=== PATIENT | female | born 1985 | race Two or more races ===

== ENCOUNTER 2019-06-10 22:35 | Inpatient (IN) | payer BC ==
[2019-06-10] MEDS ORDERED: Lidocaine 1% 50 ML MDV INJECT ONE (23:01)
[2019-06-10] MEDS ORDERED: Sodium Chloride 0.9% 10 ML Syringe FLUSH PRN (23:01)
[2019-06-10] MEDS ORDERED: Nalbuphine 10 MG/ML Syringe IVPUSH PRN (23:01)
[2019-06-10] MEDS: Lactated Ringers 1,000 ML IV SCH ×2 (23:11→23:55)
[2019-06-10] MEDS ORDERED: fentaNYL 100 MCG/2 ML SDV EPIDUR PRN (23:26)
[2019-06-10] MEDS ORDERED: diphenhydrAMINE 50 MG/ML SDV IVPUSH PRN (23:26)
[2019-06-10] MEDS ORDERED: fentaNYL/Bupivacaine/NS 2 MCG-0.125% 250 ML EPIDUR PRN (23:26)
[2019-06-10] MEDS ORDERED: ePHEDrine 50 MG/ML SDV IVPUSH PRN (23:26)
--- NOTE | 2019-06-10 23:51 | PCM.PREANE ---
Preanesthetic Assessment - Procedure Proposed Procedure: masha - Anesthesia/Transfusion/Family Hx Anesthesia History: Prior Anesthesia Without Reaction Family History of Anesthesia Reaction: No Transfusion History: No Prior Transfusion(s) - Review of Systems General: No Symptoms Pulmonary: No Symptoms Cardiovascular: No Symptoms Gastrointestinal: No Symptoms Neurological: No Symptoms Other: Reports: None - Physical Assessment Vital Signs: 113/62 103 100% Height: 5 ft 2 in Weight: 76.204 kg ASA Class: 2 Mental Status: Alert & Oriented x3 Airway Class: Mallampati = 1 Dentition: Reports: Normal Dentition Thyro-Mental Finger Breadths: 3 Mouth Opening Finger Breadths: 3 ROM/Head Extension: Full Lungs: Clear to Auscultation, Normal Respiratory Effort Cardiovascular: Regular Rate, Regular Rhythm - Lab Values: Laboratory Last Values WBC 12.35 K/mm3 (3.98-10.04) H 06/10/19 23:17 RBC 4.17 M/mm3 (3.98-5.22) 06/10/19 23:17 Hgb 13.7 gm/dl (11.2-15.7) 06/10/19 23:17 Hct 39.2 % (34.1-44.9) 06/10/19 23:17 MCV 94.0 fl (79.4-94.8) 06/10/19 23:17 MCH 32.9 pg (25.6-32.2) H 06/10/19 23:17 MCHC 34.9 g/dl (32.2-35.5) 06/10/19 23:17 RDW Std Deviation 44.9 fL (36.4-46.3) 06/10/19 23:17 Plt Count 217 K/mm3 (182-369) 06/10/19 23:17 MPV 10.2 fl (9.4-12.3) 06/10/19 23:17 Neut % (Auto) 74.4 % (34.0-71.1) H 06/10/19 23:17 Lymph % (Auto) 16.1 % (19.3-51.7) L 06/10/19 23:17 [place] % (Auto) 8.6 % (4.7-12.5) 06/10/19 23:17 Eos % (Auto) 0.6 (0.7-5.8) L 06/10/19 23:17 Baso % (Auto) 0.1 % (0.1-1.2) 06/10/19 23:17 Neut # (Auto) 9.19 K/mm3 (1.56-6.13) H 06/10/19 23:17 Lymph # (Auto) 1.99 K/mm3 (1.18-3.74) 06/10/19 23:17 [place] # (Auto) 1.06 K/mm3 (0.24-0.36) H 06/10/19 23:17 Eos # (Auto) 0.07 K/mm3 (0.04-0.36) 06/10/19 23:17 Baso # (Auto) 0.01 K/mm3 (0.01-0.08) 06/10/19 23:17 - Allergies Allergies/Adverse Reactions: Allergies Allergy/AdvReac Type Severity Reaction Status Date / Time No Known Allergies Allergy Verified 06/10/19 23:33 - Blood Blood Available: No - Acknowledgements Anesthesia Type Planned: Epidural Pt an Appropriate Candidate for the Planned Anesthesia: Yes Alternatives and Risks of Anesthesia Discussed w Pt/Guardian: Yes Pt/Guardian Understands and Agrees with Anesthesia Plan: Yes PreAnesthesia Questionnaire Cardiovascular History: Reports: None Respiratory History: Reports: None Gastrointestinal History: Reports: None : 3 (40 weeks) Para: 2 - Past Surgical History HEENT Surgical History: Reports: Oral Surgery - History Comment History Comment: vits for meds - SUBSTANCE USE Smoking Status *Q: Never Smoker Tobacco Use Within Last Twelve Months: No Second Hand Smoke Exposure: No Days Per Week of Alcohol Use: 0 Recreational Drug Use History: No - CURRENT (IN HOUSE) MEDS Current Meds: Current Medications Diphenhydramine HCl (Benadryl) 25 mg IVPUSH Q6H PRN PRN Reason: pruritis Ephedrine Sulfate (Ephedrine Sulfate) 5 mg IVPUSH ASDIRECTED PRN PRN Reason: Hypotension Fentanyl (Sublimaze) 100 mcg EPIDUR Q3H PRN PRN Reason: Pain Fentanyl/Bupivacaine HCl (Fentanyl/Bupivacaine/Ns 2 Mcg-0.125% 250 Ml) ml EPIDUR CONTINUOUS PRN PRN Reason: Pain Lactated Ringer's (Ringers, Lactated) 1,000 mls @ 100 mls/hr IV ASDIRECTED ALICE Last Admin: 06/10/19 23:11 Dose: 999 mls/hr Oxytocin/Lactated Ringer's (Pitocin In Lr 10 Units/1,000 Ml) 10 unit in 1,000 mls @ 500 mls/hr IV .CONTINUOUS ALICE Nalbuphine HCl (Nubain) 10 mg IVPUSH Q2H PRN PRN Reason: Pain Sodium Chloride (Saline Flush) 10 ml FLUSH ASDIRECTED PRN PRN Reason: Keep Vein Open Discontinued Medications Lidocaine HCl (Xylocaine 1%) 20 ml INJECT ONETIME ONE Stop: 06/10/19 23:02
[2019-06-11] MEDS ORDERED: Bupivacaine 0.25% 10 ML SDV ONE
[2019-06-11] MEDS: Lactated Ringers 1,000 ML IV SCH (00:48)
--- NOTE | 2019-06-11 00:56 | PCM.LDHP ---
L&D History of Present Illness - General Date of Service: 06/10/19 Admit Problem/Dx: Patient Status Order with Admit Dx/Problem 06/10/19 23:01 Patient Status [ADT] Routine Admission Diagnosis/Problem Admission Diagnosis/Problem Active labor Source of Information: Patient History Limitations: Reports: No Limitations - History of Present Illness Introduction:: 34 year old at 40w3d here with labor. Questions rupture of membranes at 0900 and regular contractions started around 9pm. Arrived 8cm dilated. records reviewed and on chart. Care with myself without complications. - Related Data Allergies/Adverse Reactions: Allergies Allergy/AdvReac Type Severity Reaction Status Date / Time No Known Allergies Allergy Verified 06/10/19 23:33 Past Medical History Cardiovascular History: Reports: None Respiratory History: Reports: None Gastrointestinal History: Reports: None - Past Surgical History HEENT Surgical History: Reports: Oral Surgery - History Comment History Comment: vits for meds Social & Family History - Tobacco Use Smoking Status *Q: Never Smoker Second Hand Smoke Exposure: No - Alcohol Use Days Per Week of Alcohol Use: 0 - Recreational Drug Use Recreational Drug Use: No H&P Review of Systems - Review of Systems: Review Of Systems: See Below General: Reports: No Symptoms HEENT: Reports: No Symptoms Pulmonary: Reports: No Symptoms Cardiovascular: Reports: No Symptoms Gastrointestinal: Reports: No Symptoms Genitourinary: Reports: No Symptoms Musculoskeletal: Reports: No Symptoms Skin: Reports: No Symptoms Psychiatric: Reports: No Symptoms Neurological: Reports: No Symptoms Hematologic/Lymphatic: Reports: No Symptoms Immunologic: Reports: No Symptoms L&D Exam - Exam Exam: See Below - Vital Signs Vital Signs: Last Vital Signs Temp 37.1 C 06/10/19 23:01 Pulse 93 06/10/19 23:01 Resp 18 06/10/19 23:01 BP 121/78 06/10/19 23:01 Pulse Ox 100 06/10/19 23:01 Weight: 76.204 kg - OB Specific Fundal Height In cm: 40 Contraction Duration (sec): 60 Contraction Frequency (min): 4 Contraction Intensity: Strong Movement: Active Heart Tones: Present - Allen Score Allen Score Cervix Position: Anterior Allen Score Effacement: >80% Allen Score Dilation: > 5 cm Allen Score 's Station: -1 ,0 - Exam General: Alert, Oriented HEENT: PERRLA, Conjunctiva Clear, EACs Clear, EOMI, Hearing Intact, Mucosa Moist & [place], Nares Patent, Normal Nasal Septum, Posterior Pharynx Clear, TMs Clear Neck: Supple, Trachea Midline Lungs: Clear to Auscultation, Normal Respiratory Effort Cardiovascular: Regular Rate, Regular Rhythm GI/Abdominal Exam: Normal Bowel Sounds, Soft, Non-Tender, No Organomegaly Rectal Exam: Normal Exam Genitourinary: Normal external exam, Normal bimanual exam, Normal speculum exam Back Exam: Normal Inspection, Full Range of Motion Extremities: Normal Inspection, Normal Range of Motion, Non-Tender, No Pedal Edema, Normal Capillary Refill Skin: Warm, Dry, Intact Neurological: Cranial Nerves Intact, Reflexes Equal Bilateral Psychiatric: Alert, Normal Affect, Normal Mood - Patient Data Lab Results Last 24 hrs: Laboratory Results - last 24 hr 06/10/19 Range/Units 23:17 WBC 12.35 H (3.98-10.04) K/mm3 RBC 4.17 (3.98-5.22) M/mm3 Hgb 13.7 (11.2-15.7) gm/dl Hct 39.2 (34.1-44.9) % MCV 94.0 (79.4-94.8) fl MCH 32.9 H (25.6-32.2) pg MCHC 34.9 (32.2-35.5) g/dl RDW Std Deviation 44.9 (36.4-46.3) fL Plt Count 217 (182-369) K/mm3 MPV 10.2 (9.4-12.3) fl Neut % (Auto) 74.4 H (34.0-71.1) % Lymph % (Auto) 16.1 L (19.3-51.7) % [place] % (Auto) 8.6 (4.7-12.5) % Eos % (Auto) 0.6 L (0.7-5.8) Baso % (Auto) 0.1 (0.1-1.2) % Neut # (Auto) 9.19 H (1.56-6.13) K/mm3 Lymph # (Auto) 1.99 (1.18-3.74) K/mm3 [place] # (Auto) 1.06 H (0.24-0.36) K/mm3 Eos # (Auto) 0.07 (0.04-0.36) K/mm3 Baso # (Auto) 0.01 (0.01-0.08) K/mm3 Result Diagrams: 06/10/19 23:17 Problem List Initiated/Reviewed/Updated: Yes Orders Last 24hrs: Active Orders 24 hr Category Date Time Status Patient Status [ADT] Routine ADT 06/10/19 23:01 Active Activity as Tolerated [RC] PFP Care 06/10/19 23:01 Active Communication Order [RC] ASDIRECTED Care 06/10/19 23:01 Active Heart Tones [RC] ASDIRECTED Care 06/10/19 23:02 Active Non Stress Test [RC] PER UNIT ROUTINE Care 06/10/19 23:01 Active Notify Provider [RC] ASDIRECTED Care 06/10/19 23:26 Active Notify Provider [RC] PFP Care 06/10/19 23:01 Active Notify Provider [RC] PRN Care 06/10/19 23:01 Active Peripheral IV Care [RC] Q2HR Care 06/10/19 23:02 Active Pump Management, Intrathecal [RC] ASDIRECTED Care 06/10/19 23:03 Active Urinary Catheter Assessment [RC] ASDIRECTED Care 06/10/19 23:01 Active Vital Signs [RC] PER UNIT ROUTINE Care 06/10/19 23:01 Active Regular Diet [DIET] Diet 06/10/19 Breakfast Active BLOOD BANK HOLD SPECIMEN [BBK] Stat Lab 06/10/19 23:01 Ordered RAPID PLASMA REAGIN,RPR [CHEM] Stat Lab 06/10/19 23:17 Received Bupivicaine/fentaNYL/NS [fentaNYL/Bupivacaine/NS 2 MCG- Med 06/10/19 23:26 Active 0.125% 250 ML] 250 ml EPIDUR CONTINUOUS PRN Lactated Ringers [Ringers, Lactated] 1,000 ml Med 06/10/19 23:15 Active IV ASDIRECTED Nalbuphine [Nubain] Med 06/10/19 23:01 Active 10 mg IVPUSH Q2H PRN Oxytocin/Lactated Ringers [Pitocin in LR 10 Units/1,000 Med 06/10/19 23:15 Active ML] 10 unit in 1,000 ml IV .CONTINUOUS Sodium Chloride 0.9% [Saline Flush] Med 06/10/19 23:01 Active 10 ml FLUSH ASDIRECTED PRN diphenhydrAMINE [Benadryl] Med 06/10/19 23:26 Active 25 mg IVPUSH Q6H PRN ePHEDrine [ePHEDrine sulfate] Med 06/10/19 23:26 Active 5 mg IVPUSH ASDIRECTED PRN fentaNYL [Sublimaze] Med 06/10/19 23:26 Active 100 mcg EPIDUR Q3H PRN Electronic Heart Tones Ext w TOCO [WOMSER] Oth 06/10/19 23:01 Ordered Routine Electronic Heart Tones Internal [WOMSER] Per Unit Oth 06/10/19 23:01 Ordered Routine Peripheral IV Insertion Adult [OM.PC] Routine Oth 06/10/19 23:01 Ordered Resuscitation Status Routine Resus Stat 06/10/19 23:01 Ordered Medication Orders Diphenhydramine HCl (Benadryl) 25 mg IVPUSH Q6H PRN PRN Reason: pruritis Ephedrine Sulfate (Ephedrine Sulfate) 5 mg IVPUSH ASDIRECTED PRN PRN Reason: Hypotension Fentanyl (Sublimaze) 100 mcg EPIDUR Q3H PRN PRN Reason: Pain Last Admin: 06/11/19 00:08 Dose: 100 mcg Fentanyl/Bupivacaine HCl (Fentanyl/Bupivacaine/Ns 2 Mcg-0.125% 250 Ml) 250 ml EPIDUR CONTINUOUS PRN PRN Reason: Pain Last Admin: 06/11/19 00:08 Dose: 250 ml Lactated Ringer's (Ringers, Lactated) 1,000 mls @ 100 mls/hr IV ASDIRECTED ALICE Last Admin: 06/11/19 00:48 Dose: 999 mls/hr Infusion: 06/11/19 00:48 Dose: 999 mls/hr Admin: 06/10/19 23:55 Dose: 999 mls/hr Infusion: 06/10/19 23:55 Dose: 999 mls/hr Admin: 06/10/19 23:11 Dose: 999 mls/hr Oxytocin/Lactated Ringer's (Pitocin In Lr 10 Units/1,000 Ml) 10 unit in 1,000 mls @ 500 mls/hr IV .CONTINUOUS ALICE Nalbuphine HCl (Nubain) 10 mg IVPUSH Q2H PRN PRN Reason: Pain Sodium Chloride (Saline Flush) 10 ml FLUSH ASDIRECTED PRN PRN Reason: Keep Vein Open Assessment/Plan Comment:: Term labor. GBS negative. Reactive monitoring. Anticipate .
[2019-06-11] MEDS: Oxytocin/Lactated Ringers 10 UNIT/1,000 ML BAG IV SCH ×2 (02:21→03:11)
[2019-06-11] MEDS ORDERED: Misoprostol 200 MCG Tab ONE (02:31)
--- NOTE | 2019-06-11 02:36 | PCM.SN ---
- Free Text/Narrative Note: Stage I - Patient presented in active labor. AROM clear fluid. Epidural. Progressed to complete with overall reassuring FHT. Stage II - of viable male, weight 8#1 oz, 8/9 APGARS 0221. Head delivered in controlled manner over intact perineum. Body and shoulders atraumatically. To maternal abdomen. Cord clamped and cut. Stage III - of intact placenta. 3vc. no laceration. EBL 500. Pitocin and cytotec given.
[2019-06-11] MEDS ORDERED: Ibuprofen 600 MG Tab PO PRN (03:58)
[2019-06-11] MEDS ORDERED: Misoprostol 200 MCG Tab PO PRN (03:58)
[2019-06-11] MEDS ORDERED: Benzocaine/Menthol 20%-0.5% Spray 56 GM Canister TOP PRN (03:58)
[2019-06-11] MEDS ORDERED: Acetaminophen 325 MG Tab PO PRN (03:58)
[2019-06-11] MEDS ORDERED: Witch Hazel Medicated Pads 40/Jar TOP PRN (03:58)
[2019-06-11] MEDS ORDERED: fentaNYL/Bupivacaine/NS 2 MCG-0.125% 250 ML EPIDUR ONE (04:27)
[2019-06-11] MEDS ORDERED: fentaNYL 100 MCG/2 ML SDV IVPUSH ONE (04:27)
--- NOTE | 2019-06-11 07:35 | PCM48HPAN ---
Post Anesthesia Note - EVALUATION WITHIN 48HRS OF ANESTHETIC Vital Signs in Normal Range: Yes Patient Participated in Evaluation: Yes Respiratory Function Stable: Yes Airway Patent: Yes Cardiovascular Function Stable: Yes Hydration Status Stable: Yes Pain Control Satisfactory: Yes Nausea and Vomiting Control Satisfactory: Yes Mental Status Recovered: Yes Vital Signs: Last Vital Signs Temp 37.1 C 06/10/19 23:01 Pulse 72 06/11/19 04:30 Resp 18 06/10/19 23:01 BP 119/60 06/11/19 04:30 Pulse Ox 100 06/10/19 23:31 - COMMENTS/OBSERVATIONS Free Text/Narrative:: no anesthesia complications noted
--- NOTE | 2019-06-12 06:44 | PCM.DCSUM1 ---
Discharge Summary - Hospital Course Diagnosis: Stroke: No - Discharge Data Discharge Date: 06/12/19 Discharge Disposition: Home, Self-Care 01 Condition: Good - Referral to Home Health Primary Care Physician: Lilia Gutierrez MD - Patient Instructions Diet: Usual Diet as Tolerated Driving: May Drive Today Showering/Bathing: September Shower Notify Provider of: Fever, Increased Pain, Swelling and Redness, Drainage, Nausea and/or Vomiting - Discharge Plan *PRESCRIPTION DRUG MONITORING PROGRAM REVIEWED*: No *COPY OF PRESCRIPTION DRUG MONITORING REPORT IN PATIENT VERA: No Home Medications: Home Meds No122/Iron/Folic Acid [ Multi Tablet] 1 each PO DAILY 06/11/19 [History] Referrals: iLlia Gutierrez MD [Primary Care Provider] - (2 week) - Discharge Summary/Plan Comment DC Time >30 min.: No - General Info Date of Service: 06/12/19 Functional Status: Reports: Pain Controlled - Review of Systems General: Reports: No Symptoms HEENT: Reports: No Symptoms Pulmonary: Reports: No Symptoms Cardiovascular: Reports: No Symptoms Gastrointestinal: Reports: No Symptoms Genitourinary: Reports: No Symptoms Musculoskeletal: Reports: No Symptoms Skin: Reports: No Symptoms Neurological: Reports: No Symptoms Psychiatric: Reports: No Symptoms - Patient Data Vitals - Most Recent: Last Vital Signs Temp 36.7 C 06/12/19 03:22 Pulse 83 06/12/19 03:22 Resp 15 06/12/19 03:22 BP 110/79 06/12/19 03:22 Pulse Ox 99 06/12/19 03:22 Weight - Most Recent: 76.204 kg I&O - Last 24 hours: Intake & Output 06/11/19 06/11/19 06/12/19 14:59 22:59 06:59 Intake Total 120 620 Balance 120 620 Lab Results - Last 24 hrs: Laboratory Results - last 24 hr 06/10/19 Range/Units 23:17 RPR Non-reactive (NONREACTIVE) Med Orders - Current: Current Medications Acetaminophen (Tylenol) 650 mg PO Q4H PRN PRN Reason: mild pain or fever Benzocaine/Menthol (Dermoplast Pain Relief [place]) 0 gm TOP ASDIRECTED PRN PRN Reason: Perineal Comfort Measure Ibuprofen (Motrin) 600 mg PO Q6H PRN PRN Reason: Mild pain or fever Last Admin: 06/11/19 16:18 Dose: 600 mg Misoprostol (Cytotec) 600 mcg PO ONETIME PRN PRN Reason: excessive vaginal bleeding Witch Aditi (Tucks) 1 pad TOP ASDIRECTED PRN PRN Reason: Pain Discontinued Medications Bupivacaine HCl (Sensorcaine-Mpf 0.25%) 10 ml .ROUTE .STK-MED ONE Stop: 06/11/19 00:01 Diphenhydramine HCl (Benadryl) 25 mg IVPUSH Q6H PRN PRN Reason: pruritis Ephedrine Sulfate (Ephedrine Sulfate) 5 mg IVPUSH ASDIRECTED PRN PRN Reason: Hypotension Fentanyl (Sublimaze) 100 mcg EPIDUR Q3H PRN PRN Reason: Pain Last Admin: 06/11/19 00:08 Dose: 100 mcg Fentanyl (Sublimaze) 100 mcg IVPUSH ONETIME ONE Stop: 06/11/19 04:28 Last Admin: 06/11/19 06:12 Dose: Not Given Fentanyl/Bupivacaine HCl (Fentanyl/Bupivacaine/Ns 2 Mcg-0.125% 250 Ml) 250 ml EPIDUR CONTINUOUS PRN PRN Reason: Pain Last Admin: 06/11/19 00:08 Dose: 250 ml Fentanyl/Bupivacaine HCl (Fentanyl/Bupivacaine/Ns 2 Mcg-0.125% 250 Ml) 250 ml EPIDUR ONETIME ONE Stop: 06/11/19 04:28 Last Admin: 06/11/19 06:12 Dose: Not Given Lactated Ringer's (Ringers, Lactated) 1,000 mls @ 100 mls/hr IV ASDIRECTED ALICE Last Admin: 06/11/19 00:48 Dose: 999 mls/hr Oxytocin/Lactated Ringer's (Pitocin In Lr 10 Units/1,000 Ml) 10 unit in 1,000 mls @ 500 mls/hr IV .CONTINUOUS ALICE Last Admin: 06/11/19 03:11 Dose: 500 mls/hr Lidocaine HCl (Xylocaine 1%) 20 ml INJECT ONETIME ONE Stop: 06/10/19 23:02 Last Admin: 06/11/19 06:12 Dose: Not Given Misoprostol (Cytotec) Confirm Administered Dose 600 mcg .ROUTE .STK-MED ONE Stop: 06/11/19 02:32 Last Admin: 06/11/19 02:37 Dose: 600 mcg Nalbuphine HCl (Nubain) 10 mg IVPUSH Q2H PRN PRN Reason: Pain Sodium Chloride (Saline Flush) 10 ml FLUSH ASDIRECTED PRN PRN Reason: Keep Vein Open - Exam General: Reports: Alert, Oriented HEENT: Reports: Pupils Equal, Pupils Reactive, EOMI, Mucous Membr. Moist/[place] Neck: Reports: Supple Lungs: Reports: Clear to Auscultation, Normal Respiratory Effort Cardiovascular: Reports: Regular Rate, Regular Rhythm GI/Abdominal Exam: Normal Bowel Sounds, Soft, Non-Tender, No Organomegaly, No Distention, No Abnormal Bruit, No Mass, Pelvis Stable (Female) Exam: Normal External Exam, Normal Speculum Exam, Normal Bimanual Exam Rectal (Female) Exam: Normal Exam, Normal Rectal Tone Back Exam: Reports: Normal Inspection, Full Range of Motion Extremities: Normal Inspection, Normal Range of Motion, Non-Tender, No Pedal Edema, Normal Capillary Refill Skin: Reports: Warm, Dry, Intact Wound/Incisions: Reports: Healing Well Neurological: Reports: No New Focal Deficit Psy/Mental Status: Reports: Alert, Normal Affect, Normal Mood
[2019-06-12] MEDS ORDERED: Docusate Sodium 100 MG Cap PO PRN (08:18)
== END 2019-06-12 12:15 | disposition home or self-care (01) | DRG 560 ==
LOC: JD.OBCHECK 22:35 → JD.OB 22:38 → JD.OBCHECK 23:08 → JD.OB 23:12 → OBSVTOIN 06-11 02:21 → JD.OB 06-11 02:22
PROVIDERS: ADMIT Obstetrics & Gynecology; ATTEND Obstetrics & Gynecology
PROC: 10E0XZZ Delivery of Products of Conception, External Approach (ICD-10-PCS; principal; 2019-06-11)
PROC: 10907ZC Drainage of Amniotic Fluid, Therapeutic from Products of Conception, Via Natural or Artificial Opening (ICD-10-PCS; 2019-06-11)
PROC: 3E0R3BZ Introduction of Anesthetic Agent into Spinal Canal, Percutaneous Approach (ICD-10-PCS; 2019-06-11)
DX: O48.0 Post-term pregnancy (principal); O69.81X0 Labor and delivery complicated by cord around neck, without compression, not applicable or unspecified; Z79.899 Other long term (current) drug therapy; Z37.0 Single live birth; Z3A.40 40 weeks gestation of pregnancy
CPT/HCPCS: 36415; 51702; 59025; 59409; 85025; 86592; A9270-GY; J2590; J3010; J3490; J7120